=== PATIENT | female | born 1955 | race Caucasian/White ===

== ENCOUNTER 2024-12-12 10:18 | Emergency (ER) | payer MEDICARE, MEDICAID ==
[~2024-12-12] VITALS: Ht 160 cm; Wt 38.0 kg
[2024-12-12] MEDS ORDERED: METRONIDAZOLE500 MG PO (10:45)
[2024-12-12] MEDS ORDERED: DIPHENOXYLATE-A60 ML PO (10:45)
[2024-12-12] MEDS ORDERED: LIPITOR40 MG PO (10:46)
[2024-12-12] MEDS ORDERED: NEXIUM40 MG PO (10:46)
[2024-12-12] MEDS ORDERED: LEVOTHYROXINE150 MC1 PO (10:47)
[2024-12-12] MEDS ORDERED: VITAMIN D250 MCG PO (10:47)
[2024-12-12] MEDS ORDERED: METHENAMINE HIPP1 GM PO (10:48)
[2024-12-12] MEDS ORDERED: ONDANSETRON HCL8 MG PO (10:49)
[2024-12-12] MEDS ORDERED: CARAFATE1 GM PO (10:49)
[2024-12-12 11:18] LABS: BASOPHILS 1.4 % (0.1-1.2); EOSINOPHILS 1.9 % (0.7-5.8); HEMATOCRIT 45.3 % (34.1-44.9); HEMOGLOBIN 15.7 g/dL (11.2-15.7); LYMPHOCYTES 28.6 % (19.3-51.7); MCH 31.2 PG (25.6-32.2); MCHC 34.7 g/dL (32.2-35.5); MCV 89.9 fL (79.4-94.8); NEUTROPHILS 62.8 % (34.0-71.1); PLATELET COUNT 268 K/uL (182-369); RBC 5.04 M/uL (3.93-5.22)
[2024-12-12 11:33] LABS: ALBUMIN 3.5 g/dL (3.4-5.0); ANION GAP 15.8 (7-21); BILIRUBIN, TOTAL 0.4 mg/dL (0.2-1.0); BUN/CREATININE RATIO 14.43 (6.0-28.6); CALCIUM 8.9 mg/dL (8.5-10.1); CREATININE, SERUM 0.97 mg/dL (0.55-1.02); POTASSIUM 3.8 mmol/L (3.5-5.1)
[2024-12-12 12:25] LABS: BILIRUBIN, URINE NEGATIVE (negative); BLOOD/HGB, URINE MODERATE (Negative); KETONE, URINE NEGATIVE (Negative); LEUK ESTERASE, URINE MODERATE (negative); NITRITE, URINE NEGATIVE (negative)
[2024-12-12 12:36] LABS: BACTERIA, URINE NONE SEEN /hpf (negative); CASTS, URINE NONE SEEN \\lpf; COLLECTION TYPE, URINE CLEAN CATCH; CRYSTALS, URINE NONE SEEN (0-1+); EPITHELIAL CELLS, URINE OCCASIONAL /lpf (0-1+); REFLEX CULTURE, URINE No (No); WHITE BLOOD CELLS, URINE 21-40 /HPF (0-5)
[2024-12-12 12:52] VITALS: BP 114/81
== END 2024-12-12 12:53 | disposition home or self-care (01) ==
LOC: ED 10:18
PROVIDERS: Emergency Medicine
DX: R10.13 Epigastric pain (principal); Z79.899 Other long term (current) drug therapy; Z88.2 Allergy status to sulfonamides; Z88.5 Allergy status to narcotic agent; Z91.041 Radiographic dye allergy status; Z88.1 Allergy status to other antibiotic agents; Z88.0 Allergy status to penicillin; Z88.8 Allergy status to other drugs, medicaments and biological substances
CPT/HCPCS: 36415; 80053; 81001; 85025; 87088; 99284